=== PATIENT | female | born 2000 | race Caucasian/White ===

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

== ENCOUNTER → 2022-04-15 | Outpatient (CLI) | payer OTHER | LOC: LAB 10:48 | PROVIDERS: ATTEND Pediatrics | DX: R21 Rash and other nonspecific skin eruption (principal) | CPT/HCPCS: 87220 ==